=== PATIENT | female | born 1975 | race Two or more races ===

== ENCOUNTER 2022-07-25 09:06 | Emergency (ER) | payer MEDICAID, OTHER ==
[~2022-07-25] VITALS: Ht 160 cm; Wt 85.7 kg
[2022-07-25] MEDS ORDERED: ONDANSETRON ODT 4 MG TAB PO ONE (09:45)
[2022-07-25] MEDS ORDERED: SUMAtriptan SUCCINATE 6 MG/0.5 ML VL SC ONE (09:45)
[2022-07-25] MEDS ORDERED: ONDA-144 PO (10:36)
[2022-07-25] MEDS ORDERED: SUMA50TA2 PO (10:36)
[2022-07-25 10:53] VITALS: BP 127/88
== END 2022-07-25 11:00 | disposition home or self-care (01) ==
LOC: ER 09:09
DX: G43.909 Migraine, unspecified, not intractable, without status migrainosus (principal); Z79.899 Other long term (current) drug therapy
CPT/HCPCS: 96372; 99283; J3030; Q0162